=== PATIENT | male | born 1995 | race Caucasian/White ===

== ENCOUNTER 2021-12-25 07:02 | Emergency (ER) | payer BC ==
[2021-12-25 07:59] VITALS: BP 117/74; PULSE 83; TEMP 97.8; BMI 29.8
== END 2021-12-25 08:20 | disposition home or self-care (01) ==
LOC: JER 07:02
DX: Z11.52 Encounter for screening for COVID-19 (principal)
CPT/HCPCS: 99283-25; C9803-CS; U0003; U0005